=== PATIENT | male | born 1960 | race Caucasian/White ===

== ENCOUNTER 2024-07-25 19:27 | Emergency (ER) | payer MEDICARE, BC | END 2024-07-25 20:49 | disposition home or self-care (01) | LOC: JP.ED 19:27 | DX: S31.823A Puncture wound without foreign body of left buttock, initial encounter (principal); I48.91 Unspecified atrial fibrillation; I10 Essential (primary) hypertension; E11.42 Type 2 diabetes mellitus with diabetic polyneuropathy; Z79.01 Long term (current) use of anticoagulants; Z79.84 Long term (current) use of oral hypoglycemic drugs; Z79.899 Other long term (current) drug therapy; W45.0XXA Nail entering through skin, initial encounter | CPT/HCPCS: 99283 ==